=== PATIENT | female | born 1980 | race Caucasian/White ===

== ENCOUNTER 2019-09-21 03:49 | Inpatient (IN) | payer OTHER ==
[~2019-09-21] VITALS: Ht 170.2 cm; Wt 98.0 kg
[2019-09-21] MEDS ORDERED: OXYTOCIN 30U/ 0.9% NaCL 500ML 500 ML IV PRN (06:59)
[2019-09-21] MEDS ORDERED: OXYTOCIN 30U/ 0.9% NaCL 500ML 500 ML IV ONE (06:59)
[2019-09-21] MEDS ORDERED: CALCIUM CARBONATE 500 MG TAB.CHEW PO PRN (07:00)
[2019-09-21] MEDS ORDERED: FENTANYL PF 100 MCG/2ML IV PRN (07:00)
[2019-09-21] MEDS ORDERED: TERBUTALINE 1 MG/ML, 1ML IVPush PRN (07:00)
[2019-09-21] MEDS ORDERED: TERBUTALINE 1 MG/ML, 1ML SQ PRN (07:00)
[2019-09-21] MEDS ORDERED: FENTANYL PF 100 MCG/2ML IVPush PRN (07:00)
[2019-09-21] MEDS ORDERED: PENICILLIN GK 5,000,000 UNITS in DEXTROSE 5% 100 ML IVPB ONE (07:00)
[2019-09-21] MEDS: LACTATED RINGERS 1,000 ML IV SCH ×2 (07:23→14:29)
[2019-09-21] MEDS ORDERED: PREN1TAB60 PO (07:27)
[2019-09-21] MEDS ORDERED: ASPI-496 PO (07:28)
[2019-09-21] MEDS ORDERED: CETI-237 PO (07:29)
[2019-09-21] MEDS ORDERED: NEWBORN KIT ONE (07:31)
[2019-09-21] MEDS ORDERED: OXYTOCIN 30U/ 0.9% NaCL 500ML 500 ML ONE ×2 (07:34→14:27)
[2019-09-21 07:40] LABS: BASOPHILS # (AUTO) 0.05 x10^3/uL (0-0.1); BASOPHILS % (AUTO) 1 % (0-1); EOSINOPHILS % (AUTO) 1 % (1-7); LYMPHOCYTES # (AUTO) 1.62 x10^3/uL (1-3.4); LYMPHOCYTES % (AUTO) 17 % (22-44); MD NO; MEAN CORPUSCULAR HEMOGLOBIN 31.7 pg (27.0-34.8); MEAN CORPUSCULAR HGB CONC 33.5 g/dL (32.4-35.8); MEAN CORPUSCULAR VOLUME 94.7 fL (80-100); MEAN PLATELET VOLUME 7.6 fL (7.4-10.4); MONOCYTES # (AUTO) 0.72 x10^3/uL (0.2-0.8); MONOCYTES % (AUTO) 7 % (2-9); NEUTROPHILS # (AUTO) 7.22 x10^3/uL (1.8-6.8); NEUTROPHILS % (AUTO) 74 % (42-75); PLATELET COUNT 311 x10^3/uL (130-400); RED BLOOD COUNT 3.82 x10^6/uL (3.82-5.3); RED CELL DISTRIBUTION WIDTH 12.4 % (9.6-15.2)
[2019-09-21] MEDS ORDERED: PENICILLIN GK 2,500,000 UNITS in DEXTROSE 5% 100 ML IVPB SCH (11:30)
[2019-09-21] MEDS ORDERED: FENTANYL PF 100 MCG/2ML ONE (11:45)
[2019-09-21] MEDS ORDERED: LIDOCAINE 1%, 20ML ONE (12:13)
[2019-09-21] MEDS ORDERED: MISOPROSTOL 200 MCG TABLET ONE (12:14)
[2019-09-21] MEDS ORDERED: OXYcodone/APAP 5/325MG TABLET ONE (13:42)
[2019-09-21] MEDS ORDERED: ACETAMINOPHEN 325 MG TABLET PO PRN (14:00)
[2019-09-21] MEDS ORDERED: MISOPROSTOL 200 MCG TABLET PR PRN (14:00)
[2019-09-21] MEDS ORDERED: ONDANSETRON 2MG/ML, 2ML IV PRN (14:00)
[2019-09-21] MEDS ORDERED: SIMETHICONE 80 MG CHEW TAB PO PRN (14:00)
[2019-09-21] MEDS ORDERED: OXYcodone/APAP 5/325MG TABLET PO PRN ×2 (14:00)
[2019-09-21] MEDS: OXYTOCIN 30U/ 0.9% NaCL 500ML 500 ML IV SCH ×3 (14:29→23:50)
[2019-09-21] MEDS ORDERED: DEXTROSE 47%, 15GM GEL ONE (14:47)
[2019-09-21 15:40] VITALS: BP 131/77
[2019-09-21 19:36] VITALS: BP 147/81
[2019-09-21 22:03] LABS: MEAN CORPUSCULAR HEMOGLOBIN 32.2 pg (27.0-34.8); MEAN CORPUSCULAR HGB CONC 33.8 g/dL (32.4-35.8); MEAN CORPUSCULAR VOLUME 95.3 fL (80-100); MEAN PLATELET VOLUME 7.4 fL (7.4-10.4); PLATELET COUNT 284 x10^3/uL (130-400); RED BLOOD COUNT 3.91 x10^6/uL (3.82-5.3); RED CELL DISTRIBUTION WIDTH 12.6 % (9.6-15.2)
[2019-09-21 22:16] LABS: BASOPHILS # (AUTO) 0.07 x10^3/uL (0-0.1); BASOPHILS % (AUTO) 0 % (0-1); EOSINOPHILS # (AUTO) 0.07 x10^3/uL (0-0.4); EOSINOPHILS % (AUTO) 1 % (1-7); LYMPHOCYTES # (AUTO) 1.94 x10^3/uL (1-3.4); LYMPHOCYTES % (AUTO) 12 % (22-44); MD SCAN; MONOCYTES # (AUTO) 0.53 x10^3/uL (0.2-0.8); MONOCYTES % (AUTO) 3 % (2-9); NEUTROPHILS # (AUTO) 13.06 x10^3/uL (1.8-6.8); NEUTROPHILS % (AUTO) 83 % (42-75)
[2019-09-22 00:10] VITALS: BP 112/65
[2019-09-22] MEDS: DOCUSATE 100 MG CAPSULE PO PRN ×2 (00:16→07:14)
[2019-09-22] MEDS: IBUPROFEN 600 MG TABLET PO PRN ×3 (00:16→13:27)
[2019-09-22 04:25] VITALS: BP 122/74
[2019-09-22 07:34] VITALS: BP 119/75
[2019-09-22] MEDS ORDERED: PRENATAL VIT/IRON/FA 1 EACH TABLET PO SCH (09:00)
[2019-09-22] MEDS ORDERED: OXYC-302 PO (13:19)
[2019-09-22] MEDS ORDERED: IBUP-1222 PO (13:19)
== END 2019-09-22 17:10 | disposition home or self-care (01) | DRG 805 ==
LOC: LDIP 06:20 → 2NW 15:48
PROVIDERS: ADMIT Obstetrics & Gynecology; ATTEND Obstetrics & Gynecology
PROC: 10E0XZZ Delivery of Products of Conception, External Approach (ICD-10-PCS; principal; 2019-09-21)
PROC: 0HQ9XZZ Repair Perineum Skin, External Approach (ICD-10-PCS; 2019-09-21)
DX: O24.02 Pre-existing type 1 diabetes mellitus, in childbirth (principal); O99.42 Diseases of the circulatory system complicating childbirth; Z37.0 Single live birth; I07.1 Rheumatic tricuspid insufficiency; O70.0 First degree perineal laceration during delivery; Z3A.37 37 weeks gestation of pregnancy; E10.9 Type 1 diabetes mellitus without complications; O99.824 Streptococcus B carrier state complicating childbirth; Z79.4 Long term (current) use of insulin
CPT/HCPCS: 36415; 82962; 85025; 86850; 86900; G0378; J2540; J3010; J2590; J7120

== ENCOUNTER 2019-09-23 15:19 | Emergency (ER) | payer OTHER ==
[~2019-09-23] VITALS: Ht 170.2 cm; Wt 92.0 kg
[~2019-09-23 15:19] MED LIST: ASPI-496 PO; CETI-237 PO; IBUP-1222 PO; OXYC-302 PO; PREN1TAB60 PO
--- NOTE | 2019-09-23 15:52 | NUR ---
PT TO ROOM VIA WHEELCHAIR AT THIS TIME
--- NOTE | 2019-09-23 16:04 | NUR ---
THIS IS A 39Y F THAT WAS D/C LAST NIGHT FROM L&D. PT REPORTS NEW SWELLING BILAT WORSE IN LEFT. SOB OVER LAST TWO HOURS. DENIES ILLNESS.
--- NOTE | 2019-09-23 16:04 | NUR ---
MD AT BEDSIDE TO ASSESS PT
--- NOTE | 2019-09-23 16:29 | NUR ---
ULTRASOUND AT BEDSIDE
[2019-09-23 16:51] VITALS: BP 146/82
--- NOTE | 2019-09-23 16:52 | NUR ---
PT RESTING ON GURBRIDGETT AT BEDSIDE. JUAN BEE CALL LIGHT IN REACH
== END 2019-09-23 17:58 | disposition home or self-care (01) ==
LOC: ED 17:13
DX: R60.0 Localized edema (principal); E10.9 Type 1 diabetes mellitus without complications
CPT/HCPCS: 99284

== ENCOUNTER → 2019-09-29 | Outpatient (CLI) | payer OTHER ==
[~2019-09-29] VITALS: Ht 170.2 cm; Wt 90.0 kg
[2019-09-29 11:38] LABS: BASOPHILS # (AUTO) 0.03 x10^3/uL (0-0.1); BASOPHILS % (AUTO) 1 % (0-1); EOSINOPHILS # (AUTO) 0.13 x10^3/uL (0-0.4); EOSINOPHILS % (AUTO) 2 % (1-7); LYMPHOCYTES % (AUTO) 31 % (22-44); MD NO; MEAN CORPUSCULAR HEMOGLOBIN 32.4 pg (27.0-34.8); MEAN CORPUSCULAR HGB CONC 33.2 g/dL (32.4-35.8); MEAN CORPUSCULAR VOLUME 97.5 fL (80-100); MEAN PLATELET VOLUME 7.4 fL (7.4-10.4); MONOCYTES # (AUTO) 0.55 x10^3/uL (0.2-0.8); MONOCYTES % (AUTO) 9 % (2-9); NEUTROPHILS # (AUTO) 3.56 x10^3/uL (1.8-6.8); NEUTROPHILS % (AUTO) 58 % (42-75); PLATELET COUNT 421 x10^3/uL (130-400); RED BLOOD COUNT 4.55 x10^6/uL (3.82-5.3); RED CELL DISTRIBUTION WIDTH 12.7 % (9.6-15.2)
[2019-09-29 11:47] LABS: MICROSCOPIC NOT IND
[2019-09-29 11:48] LABS: ALANINE AMINOTRANSFERASE 24 U/L (12-78); ALBUMIN 3.1 g/dL (3.4-5.0); ANION GAP 7 mmol/L (5-15); CALCIUM 8.7 mg/dL (8.5-10.1); CHLORIDE 110 mmol/L (98-107); CREATININE 0.66 mg/dL (0.55-1.02)
[2019-09-29 11:50] LABS: ALKALINE PHOSPHATASE 94 U/L (45-117); BILIRUBIN,TOTAL 0.7 mg/dL (0.2-1.0); TOTAL PROTEIN 7.3 g/dL (6.4-8.2)
[2019-09-29 11:54] VITALS: BP 141/85
[2019-09-29 12:01] LABS: PROTEIN/CREATININE RATIO,URINE < 200 (0-200); TOTAL PROTEIN,URINE RANDOM < 5 mg/dL (0-12)
== END | disposition home or self-care (01) ==
LOC: LDOP 10:53
PROVIDERS: ATTEND Obstetrics & Gynecology
DX: O90.89 Other complications of the puerperium, not elsewhere classified (principal); O13.3 Gestational [pregnancy-induced] hypertension without significant proteinuria, third trimester; Z3A.39 39 weeks gestation of pregnancy; R51 Headache
CPT/HCPCS: 36415; 80053; 81003; 82570; 84156; 84550; 85025